=== PATIENT | male | born 1985 | race Two or more races ===

== ENCOUNTER 2017-08-11 12:59 | Emergency (ER) | payer BC ==
[2017-08-11 14:13] VITALS: BP 135/79
--- NOTE | 2017-08-11 15:03 | UC ---
General HPI - HPI Summary HPI Summary: 32 yo gentleman c/o R great toe / foot pain and swelling. Pedro 1st MTP joint area. Denies known trauma during this time. Did walk a lot yesterday. Sx started Sat or (today is Sun). Sx improved (not completely resolved) with acetaminophen, rest. But worse again this am. No other joints affected. No rash. No previous hx of similar. Although he notes that he has had a few "mysterious" sprains last couple years both feet. No cough / cold / urinary issues/ gi issues / rash reported. - History of Current Complaint Chief Complaint: UCLowerExtremity Stated Complaint: RT FOOT PAIN/SWELLING Time Seen by Provider: 08/11/17 15:02 Hx Obtained From: Patient Pain Intensity: 3 - Allergy/Home Medications Allergies/Adverse Reactions: Allergies Allergy/AdvReac Type Severity Reaction Status Date / Time No Known Allergies Allergy Verified 08/11/17 14:06 Home Medications: Home Medications Ibuprofen TAB* [Advil TAB*] 600 mg PO Q6H PRN 08/11/17 [History Confirmed ] PMH/Surg Hx/FS Hx/Imm Hx Previously Healthy: Yes - Surgical History Surgical History: None - Social History Alcohol Use: Rare Substance Use Type: Marijuana Substance Use Comment - Amount & Last Used: occasional use. Unknown last time used. Smoking Status (MU): Never Smoked Tobacco Review of Systems Constitutional: Negative Skin: Other - see hpi Eyes: Negative ENT: Negative Respiratory: Negative Cardiovascular: Negative Gastrointestinal: Negative Genitourinary: Negative Motor: Other - see hpi Neurovascular: Negative Musculoskeletal: Arthralgia Neurological: Negative Psychological: Negative Is Patient Immunocompromised?: No All Other Systems Reviewed And Are Negative: Yes Physical Exam Triage Information Reviewed: Yes Appearance: Well-Nourished - sitting up. conversing easily and appropriately. Vital Signs: Initial Vital Signs Temp 98.5 F 08/11/17 14:08 Pulse 63 08/11/17 14:08 Resp 20 08/11/17 14:08 BP 135/79 08/11/17 14:08 Pulse Ox 98 08/11/17 14:08 Vital Signs Reviewed: Yes Eye Exam: Normal - grossly normal ENT Exam: Normal - grossly normal Neck exam: Normal - no c/o of pain Respiratory Exam: Normal - no tachypnea, no dyspnea Cardiovascular Exam: Normal - hr normal. non-diaphoretic Abdominal Exam: Normal - no c/o pain Musculoskeletal Exam: Other - Both feet + dp / pt. CR < 2 sec. R MTP + redness / swelling. Pain with passive movement flex and exend. No crepitus. Neurological Exam: Normal Psychological Exam: Normal - conversing easily and appropriately Skin Exam: Normal - see "musc skel" re foot right Course/Dx - Course Course Of Treatment: Reviewed s/sx with pt. Reviewed coa / tx plan. Questions as posed answered to the best of my ability. Xray R foot - see iPeen report. Ordered cbc, bmp, crp, sed rate, uric acid. F/u PCP, he will call tomorrow for appt this week. Has his own crutches at home. Post op shoe ( wearing slipper today), initially wished both feet but changed his mind and requests just Right foot. Mr. Barbour wishes to leave while xray report pending. I do not see a problem on the xray. We will touch base with Mr. Barbour after the xray has been read. 16:55 - reviewed foot xray report. NAD. Pt will be notified of the result. (no change from original treatment plan) - Differential Dx - Multi-Symptom Provider Diagnoses: R foot arthritis, c/w gout. see above Discharge - Sign-Out/Discharge Documenting (check all that apply): Discharge - Discharge Plan Condition: Stable Disposition: HOME Prescriptions: Colchicine* [Colcrys*] 0.6 mg PO DAILY #6 tab Naproxen TAB* [Naprosyn 250 mg TAB*] 500 mg PO Q8H PRN #21 tab PRN Reason: Pain Patient Education Materials: Low Purine Diet (ED), Gout (ED) Referrals: Topher Alberto MD [Primary Care Provider] - Additional Instructions: Post op shoe and crutches for comfort. Then your own footwear as tolerable, firm sole is better if possible. Please call your doctor tomorrow to schedule appointment for this week. Seek medical attention for worse or new problems in the meantime. Blood tests today. Foot xray today. - Billing Disposition and Condition Condition: STABLE Disposition: HOME
--- NOTE | 2017-08-11 16:35 | RAD ---
Indication: Right great toe swelling. 3 views of the right foot demonstrates no fracture. No other bone or joint abnormality is identified. IMPRESSION: No fracture of the right great toe or foot is noted.
[2017-08-12 11:32] LABS: ABS Basophils 0 10^3/ul (0-0.2); ABS Eosinophils 0.2 10^3/ul (0-0.6); ABS Lymphocytes 2.6 10^3/ul (1.0-4.8); ABS Monocytes 0.7 10^3/ul (0-0.8); ABS Nucleated RBC 0 10^3/ul; Eosinophil % 2.4 % (0-6); Hematocrit 40 % (42-52); Hemoglobin 13.3 g/dl (14.0-18.0); Mean Corpuscular HGB Conc 33 g/dl (31-36); Mean Corpuscular Hemoglobin 30 pg (27-31); Mean Corpuscular Volume 91 fL (80-94); Mean Platelet Volume 11.1 um3 (7.4-10.4); Nucleated Red Blood Cells % 0.1; Platelet Count 217 10^3/ul (150-450); Red Blood Count 4.41 10^6/ul (4.0-5.4); Red Cell Distribution Width 13 % (10.5-15); White Blood Count 8.5 10^3/ul (3.5-10.8)
[2017-08-12 11:45] LABS: EGFR Non-African American 90.3 (>60); Uric Acid 6.7 mg/dL (4.4-7.6)
== END 2017-08-11 16:24 | disposition home or self-care (01) ==
LOC: UCCORT 12:59
DX: M19.071 Primary osteoarthritis, right ankle and foot (principal)
CPT/HCPCS: 36415; 80048; 84550; 85025; 85652; 86140; 99213; G0463

== ENCOUNTER 2017-08-26 08:31 | Emergency (ER) | payer BC ==
[2017-08-26 08:48] VITALS: BP 131/79
--- NOTE | 2017-08-26 09:03 | UC ---
Skin Complaint HPI - HPI Summary HPI Summary: infected cyst on chest for 3rd time. states had appt with pcp today who canceled. states usually gets an antibiotic and then when swelling goes down, he sterilizes a needled and drains it himself. swollen for about 1 week. - History of Current Complaint Chief Complaint: UCSkin Time Seen by Provider: 08/26/17 08:55 Stated Complaint: SKIN COMPLAINT CHEST Hx Obtained From: Patient Onset/Duration: Gradual Onset Timing: Constant Pain Intensity: 0 Aggravating Factor(s): Nothing Alleviating Factor(s): Nothing Associated Signs & Symptoms: Negative: Fever - Allergy/Home Medications Allergies/Adverse Reactions: Allergies Allergy/AdvReac Type Severity Reaction Status Date / Time No Known Allergies Allergy Verified 08/26/17 08:48 Review of Systems Constitutional: Negative Skin: Other - infected cyst on chest Eyes: Negative ENT: Negative Respiratory: Negative Cardiovascular: Negative Gastrointestinal: Negative Genitourinary: Negative Motor: Negative Neurovascular: Negative Musculoskeletal: Negative Neurological: Negative Psychological: Negative Is Patient Immunocompromised?: No All Other Systems Reviewed And Are Negative: Yes PMH/Surg Hx/FS Hx/Imm Hx - Additional Past Medical History Additional PMH: gout - Surgical History Surgical History: None - Family History Known Family History: Positive: Other - anxiety/depression - Social History Occupation: Employed Full-time Lives: Alone Alcohol Use: Rare Substance Use Type: Marijuana Substance Use Comment - Amount & Last Used: occasional use. Unknown last time used. Smoking Status (MU): Never Smoked Tobacco - Immunization History Vaccination Up to Date: Yes Physical Exam Triage Information Reviewed: Yes Appearance: Well-Appearing Vital Signs: Initial Vital Signs Temp 98.4 F 08/26/17 08:43 Pulse 68 08/26/17 08:43 Resp 18 08/26/17 08:43 BP 131/79 08/26/17 08:43 Pulse Ox 98 08/26/17 08:43 Vital Signs Reviewed: Yes Eyes: Positive: Conjunctiva Clear ENT: Positive: Normal ENT inspection Neck: Positive: Supple, Nontender, No Lymphadenopathy Respiratory: Positive: Lungs clear, Normal breath sounds Cardiovascular: Positive: RRR, No Murmur Abdomen Description: Positive: Nontender, No Organomegaly, Soft Bowel Sounds: Positive: Present Musculoskeletal: Positive: ROM Intact Neurological: Positive: Alert Psychological: Positive: Age Appropriate Behavior Skin Exam: Normal, Other - 3 cm area of mild erythema and swelling, fluctuance and tenderness to lower half. Course/Dx - Course Course Of Treatment: PROCEDURE: time out done. site prep betadine, linear local with 2ml, 1% lidocaine. superficial stab with tip of #11 blade, puss and sebum drained. blunt forcep used to probe site. gentle pressure expressed a moderate amoutn of additonal puss(cultured) and a small amount of sebum. irrigated with sterile water. small gauze pack placed. bacitracin and gauze to site. sterile technique used. minimal bleeding. pt tolerated well. no cellulitis thus no po antibiotic. - Diagnoses Provider Diagnoses: I&D infected cyst on chest. Discharge - Sign-Out/Discharge Documenting (check all that apply): Discharge/Admit/Transfer - Discharge Plan Condition: Stable Disposition: HOME Patient Education Materials: Cyst (ED), Abscess Incision and Drainage (DC) Referrals: Topher Alberto MD [Primary Care Provider] - If Needed Janel De Dios MD [Medical Doctor] - 2 Days - Billing Disposition and Condition Condition: STABLE Disposition: HOME
[2017-08-26] MEDS ORDERED: Lidocaine 1% MPF* 2 ML VIAL INJ ONE (09:04)
== END 2017-08-26 09:53 | disposition home or self-care (01) ==
LOC: UCCORT 08:31
DX: L72.9 Follicular cyst of the skin and subcutaneous tissue, unspecified (principal)
CPT/HCPCS: 10060; 87070; 87076; 87077; 87205; 87640; 87641; 99211; G0463

== ENCOUNTER 2017-09-26 07:37 | Emergency (ER) | payer BC ==
[2017-09-26 07:49] VITALS: BP 141/78
--- NOTE | 2017-09-26 08:17 | ED ---
Lower Extremity - HPI Summary HPI Summary: 32 yr old male with the complaint of left foot pain at the great toe MP joint area. Onset just this morning, and he feels he has another gout flare up. The patient states he has had gout in the past and his Uric acid levels were normal when checked by his PMD. He has no fever, chills. Pain is moderate at this point. He took on colchicine pill he had left. No other complaints. - History of Current Complaint Chief Complaint: UCLowerExtremity Stated Complaint: LEFT FOOT GOUT FLARE UP Time Seen by Provider: 09/26/17 07:50 Pain Intensity: 4 - Allergies/Home Medications Allergies/Adverse Reactions: Allergies Allergy/AdvReac Type Severity Reaction Status Date / Time No Known Allergies Allergy Verified 09/26/17 07:43 PMH/Surg Hx/FS Hx/Imm Hx Infectious Disease History: No Infectious Disease History: Denies: Traveled Outside the [place] in Last 30 Days - Family History Known Family History: Positive: Other - anxiety/depression - Social History Occupation: Employed Full-time Alcohol Use: Rare Substance Use Type: Reports: Marijuana Substance Use Comment - Amount & Last Used: occasional use. Unknown last time used. Smoking Status (MU): Never Smoked Tobacco Review of Systems Constitutional: Negative Positive: Other - left great toe MP pain. All Other Systems Reviewed And Are Negative: Yes Physical Exam Triage Information Reviewed: Yes Vital Signs On Initial Exam: Initial Vitals Temp Pulse Resp BP Pulse Ox 99 F 73 18 141/78 97 09/26/17 07:45 09/26/17 07:45 09/26/17 07:45 09/26/17 07:45 09/26/17 07:45 Vital Signs Reviewed: Yes Appearance: Positive: Well-Appearing, No Pain Distress Skin: Positive: Warm Eyes: Positive: EOMI ENT: Positive: Normal ENT inspection Neck: Positive: Nontender Respiratory/Lung Sounds: Positive: Clear to Auscultation, Breath Sounds Present Cardiovascular: Positive: RRR. Negative: Murmur Abdomen Description: Positive: Nontender Musculoskeletal: Positive: Strength/ROM Intact, Other - left great toe MP area without redness, effusion, or tenderness. He has good DP and PT pulses. Neurological: Positive: Sensory/Motor Intact, Alert, Oriented to Person Place, Time, CN Intact II-III Psychiatric: Positive: Normal - Jackson Coma Scale Best Eye Response: 4 - Spontaneous Best Motor Response: 6 - Obeys Commands Best Verbal Response: 5 - Oriented Coma Scale Total: 15 Diagnostics - Vital Signs Vital Signs Temp Pulse Resp BP Pulse Ox 09/26/17 07:45 99 F 73 18 141/78 97 - Laboratory Lab Statement: Any lab studies that have been ordered have been reviewed, and results considered in the medical decision making process. Lower Extremity Course/Dx - Course Course Of Treatment: 32 yr old male with early gout flare. DC home on Indomethacin 50 TID. FU with PMD. - Diagnoses Provider Diagnoses: Gout attack, Hypertension Discharge - Sign-Out/Discharge Documenting (check all that apply): Discharge/Admit/Transfer - Discharge Plan Condition: Good Disposition: HOME Prescriptions: Indomethacin CAP* [Indocin CAP*] 50 mg PO TID PRN #15 cap PRN Reason: Pain Patient Education Materials: Gout (ED), Hypertension (ED) Referrals: Topher Alberto MD [Primary Care Provider] - 2 Days - Billing Disposition and Condition Condition: GOOD Disposition: Home
== END 2017-09-26 08:22 | disposition home or self-care (01) ==
LOC: UCCORT 07:37
DX: M10.9 Gout, unspecified (principal); I10 Essential (primary) hypertension
CPT/HCPCS: 99212; G0463

== ENCOUNTER 2017-10-15 19:33 | Emergency (ER) | payer BC ==
[2017-10-15 19:50] VITALS: BP 123/86
--- NOTE | 2017-10-15 20:10 | UC ---
Lower Extremity/Ankle HPI - HPI Summary HPI Summary: Pt presents with c/o left lateral foot pain X 3-4 days. Denies, injury or trauma , Pt reports that he stands for long periods of time and is concerned that he has f;at feet/ Pt is requesting a referral to a "specialist" for his feet. - History of Current Complaint Chief Complaint: UCLowerExtremity Stated Complaint: FOOT PAIN Time Seen by Provider: 10/15/17 19:37 Hx Obtained From: Patient Onset/Duration: Gradual Onset, Lasting Days, Still Present Severity Initially: Moderate Severity Currently: Mild Pain Intensity: 2 Aggravating Factor(s): Standing, Ambulation Alleviating Factor(s): Rest, Elevation, Ice, Other - cam boot and crutches Able to Bear Weight: Yes - Risk Factors Gout Risk Factors: Male, Obesity DVT Risk Factors: Negative Septic Arthritis Risk Factor: Negative - Allergies/Home Medications Allergies/Adverse Reactions: Allergies Allergy/AdvReac Type Severity Reaction Status Date / Time No Known Allergies Allergy Verified 10/15/17 19:42 Home Medications: Home Medications NK [No Home Medications Reported] 10/15/17 [History Confirmed 10/15/17] PMH/Surg Hx/FS Hx/Imm Hx Previously Healthy: Yes - Surgical History Surgical History: None - Family History Known Family History: Positive: Other - anxiety/depression - Social History Occupation: Employed Full-time Lives: With Family Alcohol Use: Rare Substance Use Type: Marijuana Substance Use Comment - Amount & Last Used: occasional use. Unknown last time used. Smoking Status (MU): Never Smoked Tobacco Have You Smoked in the Last Year: No - Immunization History Vaccination Up to Date: Yes Review of Systems Constitutional: Negative Skin: Negative Eyes: Negative ENT: Negative Respiratory: Negative Cardiovascular: Negative Gastrointestinal: Negative Motor: Negative Neurovascular: Negative Musculoskeletal: Edema - left lateral foot, Myalgia - left lateral foot Neurological: Negative Psychological: Negative Is Patient Immunocompromised?: No All Other Systems Reviewed And Are Negative: Yes Physical Exam Triage Information Reviewed: Yes Appearance: Well-Appearing Vital Signs: Initial Vital Signs Temp 99.6 F 10/15/17 19:37 Pulse 85 10/15/17 19:37 Resp 18 10/15/17 19:37 BP 123/86 10/15/17 19:37 Pulse Ox 99 10/15/17 19:37 Vital Signs Reviewed: Yes Eye Exam: Normal ENT Exam: Normal Dental Exam: Normal Neck exam: Normal Respiratory: Positive: No respiratory distress Musculoskeletal: Positive: Edema @ - mild edema, left lateral foot metatarsals 3 -5. Neurological Exam: Normal Psychological Exam: Normal Skin Exam: Normal Lower Extremity Course/Dx - Differential Dx/Diagnosis Differential Diagnosis/HQI/PQRI: Gout, Strain, Tendonitis Provider Diagnoses: left foot strain. left foot tendonitis Discharge - Sign-Out/Discharge Documenting (check all that apply): Discharge/Admit/Transfer - Discharge Plan Condition: Stable Disposition: HOME Patient Education Materials: Tendinitis (ED), R.I.C.E. Treatment (ED), Metatarsalgia (DC) Referrals: Massimo Cha [Medical Doctor] - As Soon As Possible Dilcia Frankel MD [Medical Doctor] - As Soon As Possible Topher Alberto MD [Primary Care Provider] - If Needed Additional Instructions: We have provided you with a referral to a few providers for follow up regarding your complaint of foot pain. Please make an appointment at your earliest convenience. - Billing Disposition and Condition Condition: STABLE Disposition: Home
== END 2017-10-15 20:20 | disposition home or self-care (01) ==
LOC: UCEAST 19:33
DX: S96.912A Strain of unspecified muscle and tendon at ankle and foot level, left foot, initial encounter (principal); X58.XXXA Exposure to other specified factors, initial encounter; Y93.9 Activity, unspecified; Y92.9 Unspecified place or not applicable; M65.872 Other synovitis and tenosynovitis, left ankle and foot; Z81.8 Family history of other mental and behavioral disorders
CPT/HCPCS: 99211; G0463

== ENCOUNTER 2017-12-27 17:15 | Emergency (ER) | payer BC ==
[2017-12-27 18:14] VITALS: BP 128/70
--- NOTE | 2017-12-27 18:44 | UC ---
Lower Extremity/Ankle HPI - HPI Summary HPI Summary: Patient presents complaining of pain and swelling to his right ankle. He first noted a very mild vague ache in the joint yesterday that has gotten progressively worse and then started to develop the swelling. He denies any history of injury but notes that he has a fever here and has felt warm. He reports having had gout in each great toe in the past and thought it might be gout but admits that it did not have the sudden onset redness or warmth like his prior gout. He denies any other arthralgia. He reports prior history of sprains to the ankle and stress fractures to that foot but again there is no associated acute injury. - History of Current Complaint Chief Complaint: UCLowerExtremity Stated Complaint: RT ANKLE COMPLAINT (HX-GOUT) Time Seen by Provider: 12/27/17 18:33 Hx Obtained From: Patient Onset/Duration: Gradual Onset Pain Intensity: 3 Aggravating Factor(s): Ambulation Able to Bear Weight: Yes - Allergies/Home Medications Allergies/Adverse Reactions: Allergies Allergy/AdvReac Type Severity Reaction Status Date / Time No Known Allergies Allergy Verified 12/27/17 18:15 Home Medications: Home Medications Cholecalciferol TAB* [Vitamin D TAB*] 800 unit PO EVERY OTHER DAY 12/27/17 [ History Confirmed 12/27/17] Ibuprofen TAB* [Motrin TAB* 400 MG] 400 mg PO Q3H PRN 12/27/17 [History Confirmed 12/27/17] PMH/Surg Hx/FS Hx/Imm Hx - Additional Past Medical History Additional PMH: gout - Surgical History Surgical History: None - Family History Known Family History: Positive: Other - anxiety/depression - Social History Occupation: Employed Full-time Alcohol Use: Rare Substance Use Type: Marijuana Substance Use Comment - Amount & Last Used: occasional use. Unknown last time used. Smoking Status (MU): Former Smoker Have You Smoked in the Last Year: No When Did the Patient Quit Smoking/Using Tobacco: yrs - Immunization History Vaccination Up to Date: Yes Review of Systems Constitutional: Fever Skin: Negative Eyes: Negative ENT: Negative Respiratory: Negative Cardiovascular: Negative Gastrointestinal: Negative Genitourinary: Negative Motor: Negative Neurovascular: Negative Musculoskeletal: Other: - pain and swelling right ankle Neurological: Negative Psychological: Negative Is Patient Immunocompromised?: No All Other Systems Reviewed And Are Negative: Yes Physical Exam Triage Information Reviewed: Yes Appearance: Well-Appearing Vital Signs: Initial Vital Signs Temp 100.9 F 12/27/17 18:05 Pulse 88 12/27/17 18:05 Resp 24 12/27/17 18:05 BP 128/70 12/27/17 18:05 Pulse Ox 100 12/27/17 18:05 Vital Signs Reviewed: Yes Eyes: Positive: Conjunctiva Clear ENT: Positive: Normal ENT inspection Neck: Positive: Supple, Nontender, No Lymphadenopathy Respiratory: Positive: Lungs clear, Normal breath sounds Cardiovascular: Positive: RRR, No Murmur Abdomen Description: Positive: Nontender, No Organomegaly, Soft Bowel Sounds: Positive: Present Musculoskeletal: Positive: Other: - RLE: Hip, knee and foot are nontender and without erythema or swelling. The right ankle has moderate swelling and mild generalized tenderness plus pain with active and passive range of motion. It is also mildly tender to touch but has no erythema. The foot has gross sensorivascular motor function. Neurological: Positive: Alert Psychological: Positive: Age Appropriate Behavior Skin Exam: Normal Lower Extremity Course/Dx - Course Course Of Treatment: Patient has no history of injury to the right ankle to suggest a sprain or fracture. It is not a sudden red-hot swollen joint like a gout. It started out with a gradual ache in the joint that has gotten progressively worse with worsening swelling and associated pain on active and passive range of motion plus patient has low-grade temp of 100.9 thus one must exclude a septic joint. Patient agrees to ER transfer. [facility] ER was called and I spoke to [place] [employer]MI[facility]. I advised of the patient's history and physical exam and concern for septic joint. - Differential Dx/Diagnosis Provider Diagnoses: Acute nontraumatic pain and swelling right ankle. Fever. Rule out septic joint. Discharge - Sign-Out/Discharge Documenting (check all that apply): Patient Departure All imaging exams completed and their final reports reviewed: No Studies - Discharge Plan Condition: Stable Disposition: TRANS HIGHER LVL OF CARE FAC Referrals: Topher Alberto MD [Primary Care Provider] - Additional Instructions: LEAVE HERE AND GO DIRECTLY TO THE [facility] ER DISCUSSED. - Billing Disposition and Condition Condition: STABLE Disposition: Trans Higher Lvl of Care Fac
== END 2017-12-27 18:52 | disposition short-term general hospital (02) ==
LOC: UCCORT 17:15
DX: M25.571 Pain in right ankle and joints of right foot (principal); M25.471 Effusion, right ankle; R50.9 Fever, unspecified; Z87.891 Personal history of nicotine dependence
CPT/HCPCS: 99212; G0463